=== PATIENT | female | born 1965 | race Caucasian/White ===

== ENCOUNTER 2017-01-12 09:04 | Inpatient (IN) | payer BC ==
[~2017-01-12] VITALS: Ht 180.3 cm; Wt 99.8 kg
[~2017-01-12 09:04] MED LIST: IBUPROFEN PM S1 EACH PO
[2017-01-12 09:38] VITALS: BP 153/86
[2017-01-12 18:41] LABS: HEMATOCRIT 32.7 % (36.0-46.0); MCH 25.1 PG (29.0-34.0); MCHC 30.9 G/DL (30.0-36.0); MCV 81.3 FL (83-99); PLATELET COUNT 236 K/uL (156-360); RBC DIS.WIDTH-CV 14.6 % (11.8-14.6); RBC DIS.WIDTH-SD 43.1 % (39-53); RED BLOOD COUNT 4.02 M/uL (3.80-5.20); WHITE BLOOD COUNT 8.5 K/uL (4.1-10.2)
[2017-01-12 18:56] LABS: ANION GAP 6 MEQ/L (2-14); CHLORIDE 103 MEQ/L (99-109); GFR ESTIMATE (CALCULATED) > 59 mL/min/; GLUCOSE 157 mg/dL (70-99); POTASSIUM 4.7 MEQ/L (3.7-5.4); SAMPLE HEMOLYSIS CHECK 0; SAMPLE ICTERIC CHECK 0; SAMPLE LIPEMIA CHECK 0; SODIUM 136 MEQ/L (136-147); UREA NITROGEN (BUN) 8 mg/dL (9-23)
[2017-01-12 20:40] VITALS: BP 159/79
[2017-01-12 23:39] VITALS: BP 138/68
[2017-01-13 05:03] VITALS: BP 141/64
[2017-01-13 07:16] LABS: HEMATOCRIT 30.3 % (36.0-46.0); MCH 25.1 PG (29.0-34.0); MCHC 30.7 G/DL (30.0-36.0); MCV 81.9 FL (83-99); MEAN PLAT.VOLUME 9.5 uM^3 (9.5-12.4); PLATELET COUNT 215 K/uL (156-360); RBC DIS.WIDTH-CV 14.6 % (11.8-14.6); RBC DIS.WIDTH-SD 42.9 % (39-53); WHITE BLOOD COUNT 6.7 K/uL (4.1-10.2)
[2017-01-13 07:40] LABS: ANION GAP 5 MEQ/L (2-14); CHLORIDE 102 MEQ/L (99-109); GFR ESTIMATE (CALCULATED) > 59 mL/min/; GLUCOSE 125 mg/dL (70-99); SAMPLE HEMOLYSIS CHECK 0; SAMPLE ICTERIC CHECK 0; SAMPLE LIPEMIA CHECK 0; SODIUM 138 MEQ/L (136-147); UREA NITROGEN (BUN) 5 mg/dL (9-23)
[2017-01-13 07:41] LABS: POTASSIUM 3.7 MEQ/L (3.7-5.4)
[2017-01-13 07:47] VITALS: BP 144/76
[2017-01-13 12:05] VITALS: BP 137/66
[2017-01-13] MEDS ORDERED: TRAMADOL HCL50 MG PO (12:20)
[2017-01-13 13:30] VITALS: BP 137/66
== END 2017-01-13 13:51 | disposition home or self-care (01) | DRG 743 ==
LOC: 2SOUTH 09:04 → 2EAST 09:04 → 2SOUTH 09:42 → 2EAST 14:48 → 2SOUTH 14:50 → 2EAST 01-13 13:51
PROVIDERS: Obstetrics & Gynecology Gynecologic Oncology
DX: D25.1 Intramural leiomyoma of uterus (principal); N93.8 Other specified abnormal uterine and vaginal bleeding; N72 Inflammatory disease of cervix uteri; N94.6 Dysmenorrhea, unspecified
CPT/HCPCS: 36415; 80048; 85027; 86900; 86901; 88304; 88307; 94799; J0131; J0690; J1100; J1170; J1650; J1885; J2250; J2405; J2550; J2765; J3010; J7120